=== PATIENT | male | born 1995 | race Caucasian/White ===

== ENCOUNTER 2017-01-08 01:23 | Emergency (ER) ==
[2017-01-08 01:30] VITALS: BP 137/95; TEMP 97.9; BMI 37.7
[2017-01-08] MEDS ORDERED: TORADOL IM STA (02:09)
[2017-01-08] MEDS ORDERED: NUBAIN IM STA (02:09)
--- NOTE | 2017-01-08 02:09 | ED.PDOC ---
General ED Provider: Dr. HAFSA RAUSCH Chief Complaint: Shoulder Pain/Injury Stated Complaint: Right shoulder pain. Unknown recent injury. Previous injury in 2014. Rates pain 09/08. Says pain is the same with or without movement. Time Seen by Physician: 02:05 Mode of Arrival: Walk-In Information Source: Patient, Family Exam Limitations: No limitations [facility] Documentation Reviewed and Agree: Yes Review of Systems - Review Of Systems Constitutional: Reports: No symptoms Eyes: Reports: No symptoms Ears, Nose, Mouth, Throat: Reports: No symptoms Respiratory: Reports: No symptoms Cardiac: Reports: No symptoms GI: Reports: No symptoms : Reports: No symptoms Musculoskeletal: Reports: Joint pain Skin: Reports: No symptoms Neurological: Reports: No symptoms Endocrine: Reports: No symptoms Hematologic/Lymphatic: Reports: No symptoms All Other Systems: Reviewed and Negative Past Medical History - Past Medical History Previously Healthy: Yes Endocrine: Reports: Dyslipidemia Cardiovascular: Reports: None Respiratory: Reports: None Hematological: Reports: None Gastrointestinal: Reports: None Genitourinary: Reports: None Neuro/Psych: Reports: Depression Musculoskeletal: Reports: None Cancer: Reports: None - Surgical History General Surgical History: Reports: None - Family History Family History: Reports: Unknown - Social History Smoking Status: Current every day smoker Hx Substance Use: No Alcohol Screening: Occasionally - Immunizations Tetanus Shot up to Date: Yes Physical Exam - Physical Exam Appearance: Obese Ill-appearing: Mild Pain Distress: Moderate Eyes: ANANTH, EOMI, Conjunctiva clear Neck: Supple Respiratory: Airway patent, Breath sounds clear, Breath sounds equal, Respirations nonlabored Musculoskeletal: Limited ROM (right shoulder to full adbduction. ) Skin: Warm, Dry, Normal color Neurological: Sensation intact, Motor intact, Alert, Oriented Psychiatric: Affect appropriate, Mood appropriate Critical Care Note - Critical Care Note Total Time (mins): 0 Course - Course Vital Signs: Temp Pulse Resp BP Pulse Ox 01/08/17 01:24 97.9 F 87 20 137/95 H 98 Departure - Departure Time of Disposition: 02:10 Disposition: HOME SELF-CARE Discharge Problem: Shoulder pain, Tendonitis Instructions: Musculoskeletal Pain (ED) Condition: Fair Pt referred to PMD for follow-up: Yes Additional Instructions: Take ibuprofen as prescribed instead of Naproxen. Prescriptions: Ibuprofen [Motrin] 600 mg PO Q6H PRN #30 tablet PRN Reason: Analgesia Allergies/Adverse Reactions: Allergies No Known Allergies Allergy (Verified 01/08/17 01:30) Home Medications: Ambulatory Orders Ibuprofen [Motrin] 600 mg PO Q6H PRN #30 tablet 01/08/17 Transfer Form Completed: Yes Disposition Discussed With: Patient
== END 2017-01-08 02:30 | disposition home or self-care (01) ==
LOC: ED 01:23
DX: M75.91 Shoulder lesion, unspecified, right shoulder (principal); F17.210 Nicotine dependence, cigarettes, uncomplicated
CPT/HCPCS: 96372; 99282

== ENCOUNTER 2017-10-26 15:21 | Emergency (ER) ==
[2017-10-26 15:32] VITALS: BP 152/93; TEMP 97.2; BMI 38.0
--- NOTE | 2017-10-26 16:29 | ED.PDOC ---
General ED Provider: Dr. ALEAH JOHN Chief Complaint: Tooth Problem Stated Complaint: DENTAL PAIN Time Seen by Physician: 15:30 Mode of Arrival: Walk-In Information Source: Patient Exam Limitations: No limitations [facility] Documentation Reviewed and Agree: Yes Does patient meet sepsis criteria?: No System Inflammatory Response Syndrome: Not Applicable Sepsis Protocol: For patient's 13 years and over: Temp is 96.8 and below OR 101 and greater Pulse >90 BPM Resp >20/minute Acutely Altered Mental Status Are patient's symptoms suggestive of a new infection, such as: -Pneumonia -Skin, Soft Tissue -Endocarditis -UTI -Bone, Joint Infection -Implantable Device -Acute Abdominal Infection -Wound Infection -Meningitis -Blood Stream Catheter Infection -Unknown EENT Complaint Exam - Dental/Oral Complaint/Exam Mechanism of Injury: No known trauma Onset/Duration: 1 WEEK Symptoms Are: Still present Timing: Intermittent Initial Severity: Moderate Current Severity: Moderate Character: Reports: Throbbing Aggravating: Reports: Heat, Cold, Chewing Alleviating: Reports: None Associated Signs and Symptoms: Denies: Swelling, Discharge, Fever, Foul odor, Foul taste in mouth Cardiac Risk Factors: Reports: None Dental/Oral Surgical History: Reports: None Tooth Findings: Present: Gross decay, Gross caries Cervical Lymphadenopathy Present: No Facial Swelling Present: No Bleeding Present: No Oropharynx Findings: Absent: Clots, Active bleeding Septal Hematoma: No Foreign Body Present: No Dysphagia Present: No Drooling Present: No Asymmetrical Tonsillar Swelling Present: No Uvula Midline: No Dione-tonsillar Fluctuence: No Trismus Present: No Palatal Petechiae Present: No Scarlatinaform Rash Present: No Lesions: Absent: Lip, Gums, Tongue, Buccal Mucosa, Pharynx Exanthem: Absent: Lip, Gums, Tongue, Buccal Mucosa, Pharynx Vesicles: Absent: Lip, Gums, Tongue, Buccal Mucosa, Pharynx Differential Diagnoses: Dental Caries Review of Systems - Review Of Systems Constitutional: Reports: No symptoms Eyes: Reports: No symptoms Ears, Nose, Mouth, Throat: Reports: Mouth pain Respiratory: Reports: No symptoms Cardiac: Reports: No symptoms GI: Reports: No symptoms : Reports: No symptoms Musculoskeletal: Reports: No symptoms Skin: Reports: No symptoms Neurological: Reports: No symptoms Endocrine: Reports: No symptoms Hematologic/Lymphatic: Reports: No symptoms All Other Systems: Reviewed and Negative Past Medical History - Past Medical History Previously Healthy: Yes Endocrine: Reports: Dyslipidemia Cardiovascular: Reports: None Respiratory: Reports: None Hematological: Reports: None Gastrointestinal: Reports: None Genitourinary: Reports: None Neuro/Psych: Reports: Depression Musculoskeletal: Reports: None Cancer: Reports: None - Surgical History General Surgical History: Reports: None - Family History Family History: Reports: Unknown - Social History Smoking Status: Current every day smoker Hx Substance Use: No Alcohol Screening: Occasionally - Immunizations Tetanus Shot up to Date: Yes Physical Exam - Physical Exam Appearance: Well-appearing, No pain distress, Well-nourished Eyes: ANANTH, EOMI, Conjunctiva clear ENT: Ears normal, Nose normal, Oropharynx normal Respiratory: Airway patent, Breath sounds clear, Breath sounds equal, Respirations nonlabored Cardiovascular: RRR, Pulses normal, No rub, No murmur GI/: Soft, Nontender, No masses, Bowel sounds normal, No Organomegaly Musculoskeletal: Normal strength, ROM intact, No edema, No calf tenderness Skin: Warm, Dry, Normal color Neurological: Sensation intact, Motor intact, Reflexes intact, Cranial nerves intact, Alert, Oriented Psychiatric: Affect appropriate, Mood appropriate Critical Care Note - Critical Care Note Total Time (mins): 0 Course - Course Vital Signs: Temp Pulse Resp BP Pulse Ox 10/26/17 15:28 97.2 F L 73 20 152/93 H 97 Departure - Departure Time of Disposition: 16:29 Disposition: HOME SELF-CARE Discharge Problem: Toothache Instructions: Toothache (ED) Condition: Good Pt referred to PMD for follow-up: Yes IPMP verified?: No Additional Instructions: Please call your Family Physician as soon as possible to schedule a follow-up appointment. Prescriptions: Amoxicillin 500 mg PO Q8HR #21 tablet Hydrocodone/Acetaminophen [[place] 10-325 Tablet] 1 each PO Q8HR #14 tablet Allergies/Adverse Reactions: Allergies No Known Allergies Allergy (Verified 10/26/17 16:25) Home Medications: Ambulatory Orders Amoxicillin 500 mg PO Q8HR #21 tablet 10/26/17 Hydrocodone/Acetaminophen [[place] 10-325 Tablet] 1 each PO Q8HR #14 tablet
== END 2017-10-26 16:35 | disposition home or self-care (01) ==
LOC: ED 15:21
DX: K08.89 Other specified disorders of teeth and supporting structures (principal); K02.7 Dental root caries; F17.210 Nicotine dependence, cigarettes, uncomplicated
CPT/HCPCS: 99282